=== PATIENT | male | born 1960 | race Caucasian/White ===

== ENCOUNTER → 2017-07-07 | Outpatient (CLI) | payer BC ==
[2017-07-07 10:17] LABS: BLOOD GAS BASE EXCESS -0.6 mmol/L (-2-2); BLOOD GAS CARBOXYHEMOGLOBIN 1.4 % (0-4); BLOOD GAS HCO3 23 mmol/L (22-26); BLOOD GAS O2 HGB SATURATION 95 % (90-100); BLOOD GAS OXYGEN CONTENT 21.8 Vol % (12.0-20.0); BLOOD GAS PCO2 34 mmHg (38-42); BLOOD GAS PO2 88 mmHg (61-120); BLOOD GAS TOTAL HGB 16.4 G/DL (12.0-16.0); TEMP CORR TO 98.6
[2017-07-07 10:18] LABS: CRITICAL VALUE NO; DRAW SITE RT RADIAL; FIO2 21 %; NUMBER OF ARTERIAL PUNCTURES 1; STAT NO; ULNAR PULSE PRESENT
--- NOTE | 2017-07-07 11:37 | RADRPT ---
EXAM DATE/TIME: 07/07/2017 10:59 [facility] COMPARISON: No previous studies available for comparison. INDICATIONS : Cough. RADIATION DOSE: 9.98 CTDIvol (mGy) MEDICAL HISTORY : Chronic obstructive pulmonary disease. SURGICAL HISTORY : None. ENCOUNTER: Initial ACUITY: 1 week PAIN SCALE: 0/10 LOCATION: chest TECHNIQUE: Volumetric scanning of the chest was performed. Using automated exposure control and adjustment of t he mA and/or kV according to patient size, radiation dose was kept as low as reasonably achievable to obtain optimal diagnostic quality images. DICOM format image data is available electronically for r eview and comparison. Follow-up recommendations for detected pulmonary nodules are based at a minimum on nodule size and pa tient risk factors according to Fleischner Society Guidelines. FINDINGS: The lungs are clear without infiltrate, nodule, or mass. There is no pleural effusion. No appreciab le pathological adenopathy is seen within the mediastinum. Coronary artery calcifications are seen ty pically seen with CAD and need to be evaluated clinically. CONCLUSION: Unremarkable study except for coronary calcifications. Lotus Verdin MD on July 07, 2017 at 11:33 Board Certified Radiologist. This report was verified electronically.
--- NOTE | 2017-07-07 12:41 | RADRPT ---
EXAM DATE/TIME: 07/07/2017 10:59 [facility] COMPARISON: No previous studies available for comparison. INDICATIONS : Cough. RADIATION DOSE: 9.98 CTDIvol (mGy) MEDICAL HISTORY : None SURGICAL HISTORY : None. ENCOUNTER: Initial ACUITY: 2 weeks PAIN SCALE: 0/10 LOCATION: chest TECHNIQUE: Volumetric scanning of the neck was performed. Using automated exposure control and adjustment of th e mA and/or kV according to patient size, radiation dose was kept as low as reasonably achievable to obtain optimal diagnostic quality images. DICOM format image data is available electronically for re view and comparison. FINDINGS: NASOPHARYNX: The nasopharyngeal airway has a normal configuration. No mucosal thickening or mass is seen. OROPHARYNX: The intrinsic muscles of the tongue are symmetric. The tonsillar pillars are intact. The prevertebr al soft tissues are not thickened. LARYNX: The supraglottic, glottic, and infraglottic structures are intact. PARAPHARYNGEAL: The parapharyngeal space is intact. SALIVARY GLANDS: The parotid and submandibular glands are intact. LYMPH NODES: No enlarged or necrotic-appearing nodes. THYROID: Homogeneous enhancement without evidence of nodule. BONES: Unremarkable. CONCLUSION: 1. Unremarkable CT scan of the neck. No masses are identified. Michael Rosado MD on July 07, 2017 at 12:35 Board Certified Radiologist. This report was verified electronically.
--- NOTE | 2017-07-12 12:02 | RSPPFT ---
DATE OF PROCEDURE: 07/07/17 COMMENTS: Spirometry demonstrates an FEV1 of 3.1 at 90% of predicted, FVC of 4.6 at 107%, FEF 25-75 is 56%. Post-bronchodilator study demonstrated no significant change. Lung volumes demonstrated no significant abnormalities. Diffusion capacity is normal. Airways resistance is mildly increased. Room air arterial blood gases demonstrated pH of 7.44, PCO2 of 34, PO2 of 88 and O2 Saturation of 95%. IMPRESSION: 1. Mild obstructive disease with small airways obstruction. 2. Minimal response to use of bronchodilator. 3. Normal diffusion capacity.
== END ==
LOC: HRSP 09:25
DX: R05 Cough (principal); R06.00 Dyspnea, unspecified; R06.2 Wheezing; K21.9 Gastro-esophageal reflux disease without esophagitis
CPT/HCPCS: 36600; 70490; 71250; 82805; 94060; 94726; 94729